=== PATIENT | female | born 1990 | race Caucasian/White ===

== ENCOUNTER 2018-09-16 16:03 | Inpatient (IN) | payer OTHER ==
[~2018-09-16] VITALS: Ht 167.6 cm; Wt 103.0 kg
[2018-09-16] MEDS ORDERED: PRENATAL TABLE1 EAC1 PO (17:30)
== END 2018-09-20 16:46 | disposition home or self-care (01) | DRG 775 ==
LOC: LDR 16:03 → OB/GYN 16:03
PROC: BY4FZZZ Ultrasonography of Third Trimester, Single Fetus (ICD-10-PCS; 2018-09-16)
PROC: 4A1HXCZ Monitoring of Products of Conception, Cardiac Rate, External Approach (ICD-10-PCS; 2018-09-16)
PROC: 10E0XZZ Delivery of Products of Conception, External Approach (ICD-10-PCS; principal; 2018-09-18)
PROC: 3E033VJ Introduction of Other Hormone into Peripheral Vein, Percutaneous Approach (ICD-10-PCS; 2018-09-18)
PROC: 3E0F7GC Introduction of Other Therapeutic Substance into Respiratory Tract, Via Natural or Artificial Opening (ICD-10-PCS; 2018-09-19)
DX: O99.113 Other diseases of the blood and blood-forming organs and certain disorders involving the immune mechanism complicating pregnancy, third trimester (principal); O99.013 Anemia complicating pregnancy, third trimester; D69.49 Other primary thrombocytopenia; D64.89 Other specified anemias; Z3A.39 39 weeks gestation of pregnancy; Z37.0 Single live birth

== ENCOUNTER → 2020-11-29 | Outpatient (CLI) | payer OTHER ==
[~2020-11-29] MED LIST: PRENATAL TABLE1 EAC1 PO
== END | disposition home or self-care (01) ==
LOC: PRENATAL 10:00
PROVIDERS: ATTEND Obstetrics & Gynecology Maternal & Fetal Medicine
DX: Z36.89 Encounter for other specified antenatal screening (principal); O36.80X1 Pregnancy with inconclusive fetal viability, fetus 1; Z3A.14 14 weeks gestation of pregnancy

== ENCOUNTER → 2021-01-10 | Outpatient (CLI) | payer OTHER | END | disposition home or self-care (01) | LOC: PRENATAL 11:00 | PROVIDERS: ATTEND Obstetrics & Gynecology Maternal & Fetal Medicine | DX: O35.0XX1 Maternal care for (suspected) central nervous system malformation in fetus, fetus 1 (principal); O35.3XX1 Maternal care for (suspected) damage to fetus from viral disease in mother, fetus 1; O98.512 Other viral diseases complicating pregnancy, second trimester; Z36.89 Encounter for other specified antenatal screening; Z3A.20 20 weeks gestation of pregnancy ==

== ENCOUNTER → 2021-05-12 | Outpatient (CLI) | payer OTHER | END | disposition home or self-care (01) | LOC: PRENATAL 08:30 | PROVIDERS: ATTEND Obstetrics & Gynecology Maternal & Fetal Medicine | DX: O26.843 Uterine size-date discrepancy, third trimester (principal); O36.8131 Decreased fetal movements, third trimester, fetus 1; O36.8310 Maternal care for abnormalities of the fetal heart rate or rhythm, first trimester, not applicable or unspecified; O35.0XX1 Maternal care for (suspected) central nervous system malformation in fetus, fetus 1; Z36.89 Encounter for other specified antenatal screening; Z3A.32 32 weeks gestation of pregnancy ==

== ENCOUNTER 2021-05-19 15:03 | Inpatient (IN) | payer OTHER ==
[~2021-05-19] VITALS: Ht 170.2 cm; Wt 97.1 kg
[2021-05-19] MEDS ORDERED: IRON325 MG PO (18:26)
== END 2021-05-22 13:42 | disposition home or self-care (01) | DRG 807 ==
LOC: LDR 15:03 → OB/GYN 05-20 14:13
PROVIDERS: ADMIT Specialist; ATTEND Specialist
PROC: 3E0P7VZ Introduction of Hormone into Female Reproductive, Via Natural or Artificial Opening (ICD-10-PCS; 2021-05-19)
PROC: 4A1HXFZ Monitoring of Products of Conception, Cardiac Rhythm, External Approach (ICD-10-PCS; 2021-05-19)
PROC: 10E0XZZ Delivery of Products of Conception, External Approach (ICD-10-PCS; principal; 2021-05-20)
PROC: 10907ZC Drainage of Amniotic Fluid, Therapeutic from Products of Conception, Via Natural or Artificial Opening (ICD-10-PCS; 2021-05-20)
DX: O99.12 Other diseases of the blood and blood-forming organs and certain disorders involving the immune mechanism complicating childbirth (principal); Z37.0 Single live birth; D69.6 Thrombocytopenia, unspecified; O99.02 Anemia complicating childbirth; D64.9 Anemia, unspecified; Z3A.39 39 weeks gestation of pregnancy; Z20.822 Contact with and (suspected) exposure to COVID-19

== ENCOUNTER → 2024-11-05 | Emergency (ER) | payer OTHER ==
[~2024-11-05] VITALS: Ht 167.6 cm; Wt 94.8 kg
[~2024-11-05] MED LIST changes: +IRON325 MG PO
== END | disposition left against medical advice (07) ==
LOC: ER 19:25
DX: Z53.21 Procedure and treatment not carried out due to patient leaving prior to being seen by health care provider (principal)